=== PATIENT | male | born 2000 | race Native Hawaiian/Other Pacific Islander ===

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

== ENCOUNTER 2019-05-26 03:07 | Emergency (ER) | payer OTHER ==
[~2019-05-26] VITALS: Ht 195.6 cm; Wt 83.9 kg
[2019-05-26 04:05] VITALS: BP 125/84; TEMP 98.1
== END 2019-05-26 04:10 | disposition home or self-care (01) ==
LOC: ED 03:07
DX: S80.811A Abrasion, right lower leg, initial encounter (principal); M79.18 Myalgia, other site; Y93.H2 Activity, gardening and landscaping
CPT/HCPCS: 99282

== ENCOUNTER 2019-10-18 21:52 | Emergency (ER) | payer OTHER ==
[~2019-10-18] VITALS: Ht 195.6 cm; Wt 83.9 kg
[2019-10-18 22:47] LABS: PLATELET COUNT 221 K/uL (142-355)
[2019-10-18 22:52] LABS: POTASSIUM 3.7 mmol/L (3.6-5.2)
[2019-10-19 01:55] VITALS: BP 123/69; TEMP 98.2
== END 2019-10-19 01:55 | disposition home or self-care (01) ==
LOC: ED 21:52
PROVIDERS: Emergency Medicine
DX: R10.31 Right lower quadrant pain (principal)
CPT/HCPCS: 36415; 80053; 81000; 85027; 96374; 99284; J1885; Q9963